=== PATIENT | female | born 1985 ===

== ENCOUNTER 2016-11-26 14:08 | Emergency (ER) | payer MEDICAID ==
[2016-11-26 14:08] VITALS: BMI 46.3
[2016-11-26 14:33] VITALS: RESP 19; TEMP 97.8
--- NOTE | 2016-11-26 14:34 | ED PDOC ---
Arrival/HPI - General Chief Complaint: ENT Problem Time Seen by Provider: 11/26/16 14:34 Historian: Patient - History of Present Illness Narrative History of Present Illness (Text): 11/26/16 14:34 This 31 yo female without a significant medical history, presents to this ED c/ o sore throat x 2 days. Patient stated it is painful to swallow. Denies fever , sob, cp, abdominal pain, rash, recent travel, or sick contact. Patient noted mild ear pain. Time/Duration: Other (2 days) Context: Home Past Medical History - Provider Review Nursing Documentation Reviewed: Yes - Past History Past History: Non-Contributing - Infectious Disease Hx of Infectious Diseases: None - Tetanus Immunization Tetanus Immunization: Unknown - Past Medical History Past Medical History: No Previous - Cardiac Hx Cardiac Disorders: No - Pulmonary Hx Respiratory Disorders: No - Neurological Hx Neurological Disorder: No - HEENT Hx HEENT Disorder: No - Renal Hx Renal Disorder: No - Endocrine/Metabolic Hx Endocrine Disorders: No - Hematological/Oncological Hx Blood Disorders: No - Integumentary Hx Dermatological Disorder: No - Musculoskeletal/Rheumatological Hx Musculoskeletal Disorders: Yes Hx Back Pain: Yes - Gastrointestinal Hx Gastrointestinal Disorders: No - Genitourinary/Gynecological Hx Genitourinary Disorders: No - Psychiatric Hx Psychophysiologic Disorder: No Hx Substance Use: No - Past Surgical History Past Surgical History: No Previous - Surgical History Hx Section: Yes (x1) Hx Tubal Ligation: Yes - Anesthesia Hx Anesthesia: Yes Hx Anesthesia Reactions: No Hx Malignant Hyperthermia: No - Suicidal Assessment Feels Threatened In Home Enviroment: No Family/Social History - Physician Review Nursing Documentation Reviewed: Yes Family/Social History: No Known Family HX Smoking Status: Never Smoked Hx Alcohol Use: No Hx Substance Use: No Hx Substance Use Treatment: No Allergies/Home Meds Allergies/Adverse Reactions: Allergies No Known Allergies Allergy (Verified 11/26/16 14:33) Review of Systems - Review of Systems Constitutional: Normal. absent: Fatigue, Weight Change, Fevers Eyes: Normal ENT: Voice Changes, Sore Throat. absent: Rhinorrhea, Epistaxis Respiratory: Normal. absent: SOB, Cough, Sputum, Wheezing Cardiovascular: Normal. absent: Chest Pain, Palpitations Gastrointestinal: Normal. absent: Abdominal Pain, Nausea, Vomiting Genitourinary Female: Normal. absent: Dysuria, Frequency, Hematuria, Vaginal Bleeding, Vaginal Discharge Musculoskeletal: Normal Skin: Normal. absent: Rash Neurological: Normal. absent: Headache, Dizziness, Focal Weakness, Gait Changes , Speech Changes, Disequilibrium, Seizure Endocrine: Normal Hemo/Lymphatic: Normal Psychiatric: Normal Physical Exam Vital Signs Temp Pulse Resp Pulse Ox 11/26/16 14:29 97.8 F 88 19 98 Temperature: Afebrile Blood Pressure: Normal Pulse: Regular Respiratory Rate: Normal Appearance: Positive for: Well-Appearing, Non-Toxic, Comfortable Pain Distress: None Mental Status: Positive for: Alert and Oriented X 3 - Systems Exam Head: Present: Atraumatic, Normocephalic Pupils: Present: PERRL Extroacular Muscles: Present: EOMI Conjunctiva: Present: Normal Mouth: Present: Moist Mucous Membranes Pharnyx: Present: ERYTHEMA, EXUDATE, TONSILS ENLARGED. No: Peritonsilar Swelling, Uvular Deviation, Muffled/Hoarse Voice, Strider, Soft Palate/Uvular Edema Nose (External): Present: Atraumatic Nose (Internal): Present: Normal Inspection Neck: Present: Normal Range of Motion Respiratory/Chest: Present: Clear to Auscultation, Good Air Exchange. No: Respiratory Distress, Accessory Muscle Use Cardiovascular: Present: Regular Rate and Rhythm, Normal S1, S2. No: Murmurs Abdomen: Present: Normal Bowel Sounds. No: Tenderness, Distention, Peritoneal Signs Back: Present: Normal Inspection Upper Extremity: Present: Normal Inspection, Normal ROM, NORMAL PULSES, Neurovascularly Intact, Capillary Refill < 2s. No: Cyanosis, Edema Lower Extremity: Present: Normal Inspection, Normal ROM, Capillary Refill < 2 s. No: Edema Neurological: Present: GCS=15, CN II-XII Intact, Speech Normal, Motor Func Grossly Intact, Normal Sensory Function, Normal Cerebellar Funct, Gait Normal, Memory Normal Skin: Present: Warm, Dry, Normal Color. No: Rashes Psychiatric: Present: Alert, Oriented x 3 Medical Decision Making ED Course and Treatment: 11/26/16 14:48 Re-evaluation. Patient feels better. Discussed results and plan with patient who expresses understanding. All questions answered and there is agreement with the plan to discharge home with instructions. Patient stable for discharge. Return if symptoms persist or worsen Re-evaluation Time: 14:48 Reassessment Condition: Re-examined, Improved Disposition/Present on Arrival - Present on Arrival Any Indicators Present on Arrival: No History of DVT/PE: No History of Uncontrolled Diabetes: No Urinary Catheter: No History of Decub. Ulcer: No History Surgical Site Infection Following: None - Disposition Have Diagnosis and Disposition been Completed?: Yes Diagnosis: Pharyngitis Disposition: HOME/ ROUTINE Disposition Time: 14:52 Patient Plan: Discharge Condition: GOOD Discharge Instructions (ExitCare): Pharyngitis (ED) Additional Instructions: Call private doctor for follow up visit in 2-3 days. Take medication as instructed. Avoid hot meals or drinks. Take medication with food. Return to emergency if symptoms worsen. Change tooth brush in 4 days Prescriptions: Amoxicillin [Amoxil 500 mg Cap] 500 mg PO TID #30 cap Prednisone [Deltasone] 60 mg PO DAILY #12 tablet Referrals: [facility] [Outside] - Follow up with primary
[2016-11-26 15:43] VITALS: BP 127/82; PULSE 78; O2SAT 100
== END 2016-11-26 15:44 | disposition home or self-care (01) ==
LOC: ED 14:08
DX: J02.9 Acute pharyngitis, unspecified (principal)

== ENCOUNTER 2017-03-11 00:47 | Emergency (ER) | payer OTHER, MEDICAID ==
[2017-03-11 00:57] VITALS: BMI 45.3
[2017-03-11 01:01] VITALS: TEMP 97.7; O2SAT 100
--- NOTE | 2017-03-11 01:47 | ED PDOC ---
Arrival/HPI <CHASITY DESAI - Last Filed: 03/11/17 02:00> <Diomedes Schumacher DO - Last Filed: 03/11/17 06:22> - General Chief Complaint: Abnormal Skin Integrity Time Seen by Provider: 03/11/17 01:18 - History of Present Illness Narrative History of Present Illness (Text): 03/11/17 01:42 Mrs. England is a 31 year old female who presents to emergency department complaining of an abscess under her right armpit. Patient states the abscess has been present for the past few days. She states the abscess is painful to the touch. She denies any history of redness or drainage associated with the abscess. She denies fever, chills, nausea, vomiting, diarrhea.She has no prior history of abscess. (CHASITY DESAI) Past Medical History - Provider Review Nursing Documentation Reviewed: Yes - Past History Past History: Non-Contributing - Infectious Disease Hx of Infectious Diseases: None - Tetanus Immunization Tetanus Immunization: Unknown - Past Medical History Past Medical History: No Previous - Cardiac Hx Cardiac Disorders: No - Pulmonary Hx Respiratory Disorders: No - Neurological Hx Neurological Disorder: No - HEENT Hx HEENT Disorder: No - Renal Hx Renal Disorder: No - Endocrine/Metabolic Hx Endocrine Disorders: No - Hematological/Oncological Hx Blood Disorders: No - Integumentary Hx Dermatological Disorder: No - Musculoskeletal/Rheumatological Hx Musculoskeletal Disorders: Yes Hx Back Pain: Yes - Gastrointestinal Hx Gastrointestinal Disorders: No - Genitourinary/Gynecological Hx Genitourinary Disorders: No - Psychiatric Hx Psychophysiologic Disorder: No Hx Substance Use: No - Past Surgical History Past Surgical History: No Previous - Surgical History Hx Section: Yes (x1) Hx Tubal Ligation: Yes - Anesthesia Hx Anesthesia: Yes Hx Anesthesia Reactions: No Hx Malignant Hyperthermia: No - Suicidal Assessment Feels Threatened In Home Enviroment: No <CHASITY DESAI - Last Filed: 03/11/17 02:00> Family/Social History - Physician Review Nursing Documentation Reviewed: Yes Family/Social History: No Known Family HX Smoking Status: Never Smoked Hx Alcohol Use: No Hx Substance Use: No Hx Substance Use Treatment: No <CHASITY DESAI - Last Filed: 03/11/17 02:00> Allergies/Home Meds <CHASITY DESAI - Last Filed: 03/11/17 02:00> <Diomedes Schumacher DO - Last Filed: 03/11/17 06:22> Allergies/Adverse Reactions: Allergies No Known Allergies Allergy (Verified 03/11/17 00:57) Review of Systems - Review of Systems Constitutional: absent: Fatigue, Weight Change, Fevers, Night Sweats Respiratory: absent: SOB, Cough, Sputum Cardiovascular: absent: Chest Pain, Palpitations, Edema Gastrointestinal: absent: Abdominal Pain, Stool Changes, Diarrhea, Appetite Changes Musculoskeletal: absent: Arthralgias, Joint Swelling, Myalgias Skin: Abscess (right armpit). absent: Rash, Pruritis Neurological: absent: Headache, Focal Weakness Endocrine: absent: Diaphoresis, Polyuria, Polydipsia Psychiatric: absent: Anxiety, Depression <CHASITY DESAI - Last Filed: 03/11/17 02:00> Physical Exam Vital Signs Reviewed: Yes Temperature: Afebrile Blood Pressure: Normal Pulse: Regular Respiratory Rate: Normal Appearance: Positive for: Well-Appearing Pain Distress: Mild Mental Status: Positive for: Alert and Oriented X 3 - Systems Exam Head: Present: Atraumatic, Normocephalic Pupils: Present: PERRL Extroacular Muscles: Present: EOMI Mouth: Present: Moist Mucous Membranes Neck: Present: Normal Range of Motion. No: JVD Respiratory/Chest: Present: Clear to Auscultation, Good Air Exchange. No: Respiratory Distress, Accessory Muscle Use Cardiovascular: Present: Regular Rate and Rhythm, Normal S1, S2 Abdomen: Present: Normal Bowel Sounds. No: Tenderness, Distention Upper Extremity: Present: NORMAL PULSES Lower Extremity: Present: Normal Inspection. No: Edema Neurological: Present: GCS=15, CN II-XII Intact, Speech Normal Skin: Present: Abscess (Right axilla 1cm x 2cm) Psychiatric: Present: Alert, Oriented x 3, Normal Insight <CHASITY DESAI - Last Filed: 03/11/17 02:00> Medical Decision Making Reassessment Condition: Improved <CHASITY DESAI - Last Filed: 03/11/17 02:00> <Diomedes Schumacher DO - Last Filed: 03/11/17 06:22> ED Course and Treatment: 03/11/17 01:50 Impression: Mrs. England is a 31 year old female with chief complaint of an abscess located at the right axilla. Differential Diagnosis included but are not limited to: - Abscess Plan: - Incision and Drainage of abscess - Meds: Keflex - Follow up with PCP for removal of packing - Reassess and disposition Progress Notes: Performed by the emergency provider Indication: Abscess Location: Right axilla Preparation: The area was prepped and draped in the usual sterile fashion and was cleansed with alcohol wipes. Local infiltration of Lidocaine 1% with Epi was used for anesthesia. Procedure: The most fluctuant portion of the abscess was incised with a #11 scalpel. ~ Approximately 1 mL of puss and serosangunous fluid was obtained. The abscess was packed. A dressing was applied. Post-Procedure: On exam the abscess is notably less fluctuant. The patient tolerated the procedure well, and there were no complications. Cultured: NO 03/11/17 01:58 (CHASITY DESAI) Patient Seen With Resident: In agreement with resident note which contains more details about the patient. Patient was seen and evaluated with resident. Came up with plan and treatment together. A 31 year old female with an abscess under right armpit. Additional HPI as noted by resident. On physical exam, patient has a 1 cm x 2 cm right axilla abscess. Will do incision and drainage of abscess and give patient Keflex. (Diomedes Schumacher DO) - Medication Orders Current Medication Orders: Discontinued Medications Cephalexin Monohydrate (Keflex) 500 mg PO STAT STA PRN Reason: Protocol Stop: 03/11/17 01:58 Last Admin: 03/11/17 02:00 Dose: 500 mg - PA / USER EXPERIENCE LEAD / Resident Statement REYES has reviewed & agrees with the documentation as recorded. REYES has examined the patient and agrees with the treatment plan. <CHASITY DESAI - Last Filed: 03/11/17 02:00> - Scribe Statement The provider has reviewed the documentation as recorded by the Scribe <Diomedes Schumacher DO - Last Filed: 03/11/17 06:22> - Scribe Statement Ivan Cali Provider Scribe Attestation: All medical record entries made by the Scribe were at my direction and personally dictated by me. I have reviewed the chart and agree that the record accurately reflects my personal performance of the history, physical exam, medical decision making, and the department course for this patient. I have also personally directed, reviewed, and agree with the discharge instructions and disposition. (Diomedes Schumacher DO) Disposition/Present on Arrival - Present on Arrival Any Indicators Present on Arrival: No History of DVT/PE: No History of Uncontrolled Diabetes: No Urinary Catheter: No History of Decub. Ulcer: No History Surgical Site Infection Following: None - Disposition Have Diagnosis and Disposition been Completed?: Yes Disposition Time: 01:50 <CHASITY DESAI - Last Filed: 03/11/17 02:00> <Diomedes Schumacher DO - Last Filed: 03/11/17 06:22> - Disposition Diagnosis: Abscess Disposition: HOME/ ROUTINE Condition: GOOD Discharge Instructions (ExitCare): Abscess (ED) Additional Instructions: Thank you for letting us take care of you today. Your provider was Dr. Schumacher. You were treated for abscess. The emergency medical care you received today was directed at your acute symptoms. If you were prescribed any medication, please fill it and take as directed. It may take several days for your symptoms to resolve. Return to the Emergency Department if your symptoms worsen, do not improve, or if you have any other problems. Please contact your doctor or call one of the physicians/clinics you have been referred to that are listed on the Patient Visit Information form that is included in your discharge packet. Bring any paperwork you were given at discharge with you along with any medications you are taking to your follow up visit. Our treatment cannot replace ongoing medical care by a primary care provider (PCP) outside of the emergency department. Thank you for allowing the [facility] team to be part of your care today. Apply dry heat to the area as much as possible to promote drainage. Follow up with your doctor in 2 days for packing removal and re-evaluation. Prescriptions: Cephalexin [Keflex] 500 mg PO BID #10 capsule Referrals: Chris Aaron MD [Primary Care Provider] - Follow up with primary
[2017-03-11 02:08] VITALS: BP 116/81; PULSE 80; RESP 17
== END 2017-03-11 02:07 | disposition home or self-care (01) ==
LOC: ED 00:47
DX: L02.411 Cutaneous abscess of right axilla (principal)

== ENCOUNTER 2017-11-26 22:02 | Emergency (ER) | payer OTHER, MEDICAID ==
[2017-11-26 22:02] VITALS: BMI 45.3
--- NOTE | 2017-11-26 22:05 | ED PDOC ---
Arrival/HPI - General Historian: Patient <Rajeev Vázquez - Last Filed: 11/27/17 01:27> <Paul Beavers - Last Filed: 11/27/17 01:32> - General Time Seen by Provider: 11/26/17 22:04 - History of Present Illness Narrative History of Present Illness (Text): 11/26/17 22:04 32 y/o female, no significant pmh, nkda, bilateral tubal ligation, c/o rt. ankle pain s/p inversion injury this afternoon. Aching pain, aggravated by walking, no numbness or tingling, no calf pain, no foot pain, no rash, no numbness or tingling, no other medical or psychological complaints. (Rajeev Vázquez) Past Medical History - Provider Review Nursing Documentation Reviewed: Yes - Past History Past History: Non-Contributing - Infectious Disease Hx of Infectious Diseases: None - Tetanus Immunization Tetanus Immunization: Unknown - Past Medical History Past Medical History: No Previous - Cardiac Hx Cardiac Disorders: No - Pulmonary Hx Respiratory Disorders: No - Neurological Hx Neurological Disorder: No - HEENT Hx HEENT Disorder: No - Renal Hx Renal Disorder: No - Endocrine/Metabolic Hx Endocrine Disorders: No - Hematological/Oncological Hx Blood Disorders: No - Integumentary Hx Dermatological Disorder: No - Musculoskeletal/Rheumatological Hx Musculoskeletal Disorders: Yes Hx Back Pain: Yes - Gastrointestinal Hx Gastrointestinal Disorders: No - Genitourinary/Gynecological Hx Genitourinary Disorders: No - Psychiatric Hx Psychophysiologic Disorder: No Hx Substance Use: No - Past Surgical History Past Surgical History: No Previous - Surgical History Hx Section: Yes (x1) Hx Tubal Ligation: Yes - Anesthesia Hx Anesthesia: Yes Hx Anesthesia Reactions: No Hx Malignant Hyperthermia: No - Suicidal Assessment Feels Threatened In Home Enviroment: No <Rajeev Vázquez - Last Filed: 11/27/17 01:27> Family/Social History - Physician Review Nursing Documentation Reviewed: Yes Family/Social History: Unknown Family HX Smoking Status: Never Smoked Hx Alcohol Use: No Hx Substance Use: No Hx Substance Use Treatment: No <Rajeev Vázquez - Last Filed: 11/27/17 01:27> Allergies/Home Meds <Rajeev Vázquez - Last Filed: 11/27/17 01:27> <Paul Beavers - Last Filed: 11/27/17 01:32> Allergies/Adverse Reactions: Allergies No Known Allergies Allergy (Verified 11/26/17 22:49) Review of Systems - Review of Systems Constitutional: absent: Fatigue, Fevers Eyes: absent: Vision Changes ENT: absent: Hearing Changes Respiratory: absent: SOB, Cough Cardiovascular: absent: Chest Pain Gastrointestinal: absent: Abdominal Pain, Diarrhea, Nausea, Vomiting Musculoskeletal: Arthralgias, Joint Swelling. absent: Back Pain, Neck Pain, Myalgias Skin: absent: Rash, Pruritis Neurological: absent: Headache, Dizziness Psychiatric: absent: Anxiety, Depression, Suicidal Ideation <Rajeev Vázquez - Last Filed: 11/27/17 01:27> Physical Exam Temperature: Afebrile Blood Pressure: Normal Pulse: Regular Respiratory Rate: Normal Appearance: Positive for: Well-Appearing, Non-Toxic, Comfortable Pain Distress: None Mental Status: Positive for: Alert and Oriented X 3 - Systems Exam Head: Present: Atraumatic, Normocephalic Pupils: Present: PERRL Extroacular Muscles: Present: EOMI Conjunctiva: Present: Normal Mouth: Present: Moist Mucous Membranes Neck: Present: Normal Range of Motion Respiratory/Chest: Present: Clear to Auscultation, Good Air Exchange. No: Respiratory Distress, Accessory Muscle Use Cardiovascular: Present: Regular Rate and Rhythm, Normal S1, S2. No: Murmurs Abdomen: Present: Normal Bowel Sounds. No: Tenderness, Distention, Peritoneal Signs Back: Present: Normal Inspection Upper Extremity: Present: Normal Inspection. No: Cyanosis, Edema Lower Extremity: Present: Normal Inspection, Other (Rt. ankle/foot: +ttp and mild swelling to the lateral malleolus, negative elie and feldman signs, FROM without limitation, sensation intact, motor 5/5, +DPPT pulses, capillary refill < 2 seconds, no foot tenderness. ). No: Edema Neurological: Present: GCS=15, CN II-XII Intact, Speech Normal Skin: Present: Warm, Dry, Normal Color. No: Rashes Psychiatric: Present: Alert, Oriented x 3, Normal Insight, Normal Concentration <Rajeev Vázquez - Last Filed: 11/27/17 01:27> <Paul Beavers - Last Filed: 11/27/17 01:32> Vital Signs Temp Pulse Resp BP Pulse Ox 11/27/17 00:14 99.0 F 81 18 113/67 98 Medical Decision Making <Rajeev Vázquez - Last Filed: 11/27/17 01:27> <Paul Beavers - Last Filed: 11/27/17 01:32> ED Course and Treatment: 11/26/17 22:35 -Rt. ankle xray with abdomen/pelvic shielded as per protocol before urine hcg. -tylenol -observe and reassess 11/26/17 23:58 -Rt. ankle xray reviewed with the patient with questionable cortical abnormality on the lateral view -Posterior splint applied with neurovascular intact by me, crutches given. -Discharge home with posterior splint, crutches, take tylenol at home for pain as needed, ice compression, follow up with your own pmd and orthopedic within 2 days, return to the ER for any new or worsening signs or symptoms. (Rajeev Vázquez) - RAD Interpretation Radiology Orders: 11/26/17 22:32 ANKLE RIGHT 3 VIEWS ROUTINE [RAD] Stat - Medication Orders Current Medication Orders: Discontinued Medications Acetaminophen (Tylenol 325mg Tab) 650 mg PO STAT STA Stop: 11/26/17 22:33 Last Admin: 11/26/17 23:15 Dose: 650 mg MAR Pain/Vitals Document 11/26/17 23:15 JOL (Rec: 11/26/17 23:26 JOL [id number]) Pain Reassessment Is This A Pain ReAssessment? No Sleep Is patient sleeping during reassessment? No Presence of Pain Presence of Pain Yes Pain Scale Used Pain Scale Used Numeric Location Left, Right or Bilateral Right Pain Location Body Site Foot Intensity 6 - PA / BARREL MAKER / Resident Statement REYES has reviewed & agrees with the documentation as recorded. <Rajeev Vázquez - Last Filed: 11/27/17 01:27> - PA / BARREL MAKER / Resident Statement REYES has reviewed & agrees with the documentation as recorded. <Paul Beavers - Last Filed: 11/27/17 01:32> Disposition/Present on Arrival - Present on Arrival Any Indicators Present on Arrival: No History of DVT/PE: No History of Uncontrolled Diabetes: No Urinary Catheter: No History of Decub. Ulcer: No History Surgical Site Infection Following: None - Disposition Have Diagnosis and Disposition been Completed?: Yes Disposition Time: 22:35 Patient Plan: Discharge <Rajeev Vázquez - Last Filed: 11/27/17 01:27> <Paul Beavers - Last Filed: 11/27/17 01:32> - Disposition Diagnosis: Ankle injury, Ankle pain Disposition: HOME/ ROUTINE Patient Problems: Current Active Problems Problem Status Onset Ankle injury Acute Ankle pain Acute Condition: GOOD Additional Instructions: -Discharge home with posterior splint, crutches, take tylenol at home for pain as needed, ice compression, follow up with your own pmd and orthopedic within 2 days, return to the ER for any new or worsening signs or symptoms. Referrals: Chris Aaron MD [Primary Care Provider] - Follow up with primary Jennifer Mishra MD [Staff Provider] - Follow up with primary Forms: WORK NOTE
[2017-11-27 00:15] VITALS: RESP 18; TEMP 99
[2017-11-27 05:45] VITALS: BP 118/70; PULSE 77; O2SAT 99
--- NOTE | 2017-11-27 08:28 | RAD ---
PROCEDURE: Right Ankle Radiographs. HISTORY: rt. ankle inversion injury and pain COMPARISON: None FINDINGS: BONES: Normal. No fracture. JOINTS: Normal. No osteoarthritis. Ankle mortise maintained. Talar dome intact SOFT TISSUES: Normal. OTHER FINDINGS: None. IMPRESSION: Normal right ankle radiographs.
== END 2017-11-27 01:45 | disposition home or self-care (01) ==
LOC: ED 22:02
DX: S99.911A Unspecified injury of right ankle, initial encounter (principal); X50.0XXA Overexertion from strenuous movement or load, initial encounter; Y92.89 Other specified places as the place of occurrence of the external cause

== ENCOUNTER 2018-01-22 07:46 | Emergency (ER) | payer OTHER, MEDICAID ==
[2018-01-22 07:48] VITALS: BMI 47.4
[2018-01-22 07:57] VITALS: RESP 18
[2018-01-22] MEDS ORDERED: Famotidine 20mg/50ml 20 MG in Premixed IV 50 EA IVPB STA (08:09)
[2018-01-22] MEDS ORDERED: Sodium Chloride 0.9% 1,000 ML IV STA (08:10)
--- NOTE | 2018-01-22 08:11 | ED PDOC ---
Arrival/HPI - General Time Seen by Provider: 01/22/18 08:07 Historian: Patient - History of Present Illness Narrative History of Present Illness (Text): 01/22/18 08:00 32 year old female, who presents to the emergency department complaining of intermittent epigastric pain since a couple of days that became worse last night. Patient reports also having nausea, diarrhea, and frequency. Patient denies chest pain, shortness of breath headache, vomiting, dysuria, hematuria, fever, or other complaints. Time/Duration: < week Symptom Onset: Gradual Symptom Course: Intermittent, Worsening Context: Home Past Medical History - Provider Review Nursing Documentation Reviewed: Yes - Past History Past History: Non-Contributing - Infectious Disease Hx of Infectious Diseases: None - Tetanus Immunization Tetanus Immunization: Unknown - Past Medical History Past Medical History: No Previous - Cardiac Hx Cardiac Disorders: No - Pulmonary Hx Respiratory Disorders: No - Neurological Hx Neurological Disorder: No - HEENT Hx HEENT Disorder: No - Renal Hx Renal Disorder: No - Endocrine/Metabolic Hx Endocrine Disorders: No - Hematological/Oncological Hx Blood Disorders: No - Integumentary Hx Dermatological Disorder: No - Musculoskeletal/Rheumatological Hx Musculoskeletal Disorders: Yes Hx Back Pain: Yes - Gastrointestinal Hx Gastrointestinal Disorders: No - Genitourinary/Gynecological Hx Genitourinary Disorders: No - Psychiatric Hx Psychophysiologic Disorder: No Hx Substance Use: No - Past Surgical History Past Surgical History: No Previous - Surgical History Hx Section: Yes (x1) Hx Tubal Ligation: Yes - Anesthesia Hx Anesthesia: Yes Hx Anesthesia Reactions: No Hx Malignant Hyperthermia: No - Suicidal Assessment Feels Threatened In Home Enviroment: No Family/Social History - Physician Review Nursing Documentation Reviewed: Yes Family/Social History: Unknown Family HX Smoking Status: Never Smoked Hx Alcohol Use: No Hx Substance Use: No Hx Substance Use Treatment: No Allergies/Home Meds Allergies/Adverse Reactions: Allergies No Known Allergies Allergy (Verified 01/22/18 08:08) Review of Systems - Review of Systems Constitutional: absent: Fevers Eyes: absent: Vision Changes Respiratory: absent: SOB Cardiovascular: absent: Chest Pain Gastrointestinal: Abdominal Pain (epigastric pain ), Diarrhea, Nausea. absent: Vomiting Genitourinary Female: Frequency. absent: Dysuria, Hematuria Musculoskeletal: absent: Back Pain Skin: absent: Rash Neurological: absent: Headache Endocrine: absent: Diaphoresis Physical Exam Vital Signs Reviewed: Yes Vital Signs Temp Pulse Resp BP Pulse Ox 01/22/18 10:33 97.9 F 89 18 128/79 98 01/22/18 08:31 98 F 88 18 127/88 98 01/22/18 07:56 97.9 F 79 18 135/77 100 Temperature: Afebrile Blood Pressure: Normal Pulse: Regular Respiratory Rate: Normal Appearance: Positive for: Well-Appearing, Non-Toxic, Comfortable Pain Distress: None Mental Status: Positive for: Alert and Oriented X 3 - Systems Exam Head: Present: Atraumatic, Normocephalic Pupils: Present: PERRL Extroacular Muscles: Present: EOMI Conjunctiva: Present: Normal Respiratory/Chest: Present: Clear to Auscultation, Good Air Exchange. No: Respiratory Distress, Accessory Muscle Use, Wheezes, Rales, Rhonchi Cardiovascular: Present: Regular Rate and Rhythm, Normal S1, S2. No: Murmurs Abdomen: Present: Tenderness (epigastric tenderness), Normal Bowel Sounds. No: Distention, Peritoneal Signs, Rebound, Guarding Neurological: Present: GCS=15, CN II-XII Intact, Speech Normal Skin: Present: Warm, Dry, Normal Color. No: Rashes Psychiatric: Present: Alert, Oriented x 3, Normal Insight, Normal Concentration Medical Decision Making ED Course and Treatment: 01/22/18 Impression: 32 year old female with epigastric tenderness complaining of epigastric pain associated with nausea, diarrhea, and frequency. Plan: -- Labs -- Reassess and disposition Progress Notes: 01/22/18 09:30 Chest X-ray: Creator : Michael Garrett MD FINDINGS: LUNGS: No active pulmonary disease. PLEURA: No significant pleural effusion identified, no pneumothorax apparent. CARDIOVASCULAR: Normal. OSSEOUS STRUCTURES: No significant abnormalities. VISUALIZED UPPER ABDOMEN: Normal. OTHER FINDINGS: None. IMPRESSION: No active disease. 01/22/18 10:00 On re-evaluation, patient is still in pain. I will order Morphine and abdominal ultrasound. - Lab Interpretations Lab Results: 01/22/18 08:32 01/22/18 08:32 Lab Results 01/22/18 08:32: Urine HCG, Qual Negative 01/22/18 08:32: Urine Color Yellow, Urine Appearance Clear, Urine pH 6.0, Ur Specific [place] 1.025, Urine Protein Trace H, Urine Glucose (UA) Negative, Urine Ketones Negative, Urine Blood Moderate H, Urine Nitrate Negative, Urine Bilirubin Negative, Urine Urobilinogen 0.2, Ur Leukocyte Esterase Negative, Urine RBC 20 - 25, Urine WBC 1 - 3, Ur Epithelial Cells 6 - 8, Amorphous Sediment Few, Urine Bacteria Many, Hyaline Casts 0 - 2, Fine Granular Casts 0 - 2, Coarse Granular Casts Trace H, Urine Other Fiber 01/22/18 08:32: Sodium 144, Potassium 3.8, Chloride 107, Carbon Dioxide 23, Anion Gap 17, BUN 12, Creatinine 0.7, Est GFR ( Amer) > 60, Est GFR (Non- Af Amer) > 60, Random Glucose 96, Calcium 9.2, Total Bilirubin 0.3, AST 26, ALT 25, Alkaline Phosphatase 90, Total Protein 7.6, Albumin 4.2, Globulin 3.4, Albumin/Globulin Ratio 1.2, Lipase 25 01/22/18 08:32: WBC 13.7 H D, RBC 4.32, Hgb 11.7 L, Hct 35.7 L, MCV 82.6, MCH 27.1, MCHC 32.8, RDW 13.8, Plt Count 386, MPV 10.0, Gran % 75.5 H, Lymph % (Auto ) 16.3 L, [place] % (Auto) 5.7, Eos % (Auto) 2.4, Baso % (Auto) 0.1, Gran # 10.36 H , Lymph # (Auto) 2.2, [place] # (Auto) 0.8 H, Eos # (Auto) 0.3, Baso # (Auto) 0.02 I have reviewed the lab results: Yes - RAD Interpretation Radiology Orders: 01/22/18 08:26 CXR [CHEST PORTABLE] [RAD] Stat 01/22/18 10:03 ABDOMEN COMPLETE [US] Urgent - Medication Orders Current Medication Orders: Discontinued Medications Famotidine 20 mg/ (Miscellaneous) 50 mls @ 100 mls/hr IVPB STAT STA Stop: 01/22/18 08:38 Last Admin: 01/22/18 08:25 Dose: 100 mls/hr eMAR Start Stop Document 01/22/18 08:25 EAR (Rec: 01/22/18 10:25 EAR [id number]) Intravenous Solution Start Date 01/22/18 Start Time 08:30 End Date 01/22/18 End time 09:20 Total Infusion Time 50 Sodium Chloride (Sodium Chloride 0.9%) 1,000 mls @ 999 mls/hr IV .Q1H1M STA Stop: 01/22/18 09:10 Last Admin: 01/22/18 08:34 Dose: 999 mls/hr eMAR Start Stop Document 01/22/18 08:34 EAR (Rec: 01/22/18 08:35 EAR [id number]) Intravenous Solution Start Date 01/22/18 Start Time 08:34 End Date 01/22/18 End time 09:35 Total Infusion Time 61 Morphine Sulfate (Morphine) 4 mg IVP STAT STA Stop: 01/22/18 10:04 Last Admin: 01/22/18 10:29 Dose: 4 mg MAR Pain Assessment Document 01/22/18 10:29 EAR (Rec: 01/22/18 10:30 EAR [id number]) Pain Reassessment Is this a pain reassessment? Yes Sleep Is patient sleeping during reassessment? Yes Pain Scale Used Pain Scale Used Numeric Description Description Constant IVP Administration Document 01/22/18 10:29 EAR (Rec: 01/22/18 10:30 EAR [id number]) Charges for Administration # of IVP Administrations 1 Ondansetron HCl (Zofran Inj) 4 mg IVP STAT STA Stop: 01/22/18 08:11 Last Admin: 01/22/18 08:34 Dose: 4 mg IVP Administration Document 01/22/18 08:34 EAR (Rec: 01/22/18 08:34 EAR [id number]) Charges for Administration # of IVP Administrations 1 - Scribe Statement The provider has reviewed the documentation as recorded by the Scribe America Moore Provider Scribe Attestation: All medical record entries made by the Scribe were at my direction and personally dictated by me. I have reviewed the chart and agree that the record accurately reflects my personal performance of the history, physical exam, medical decision making, and the department course for this patient. I have also personally directed, reviewed, and agree with the discharge instructions and disposition. Disposition/Present on Arrival - Present on Arrival Any Indicators Present on Arrival: Yes History of DVT/PE: No History of Uncontrolled Diabetes: No Urinary Catheter: No History Surgical Site Infection Following: None - Disposition Have Diagnosis and Disposition been Completed?: Yes Diagnosis: Enteritis, Cholelithiasis, Epigastric pain Disposition: HOME/ ROUTINE Disposition Time: 12:46 Patient Plan: Discharge Condition: GOOD Discharge Instructions (ExitCare): Gallstones, Viral Gastroenteritis, Adult (DC ) Prescriptions: Famotidine [Pepcid] 40 mg PO DAILY #30 tablet Forms: WORK NOTE
[2018-01-22] MEDS ORDERED: Famotidine 20mg/50ml 20 MG/50 ML BAG IVPB ONE (08:33)
[2018-01-22 08:38] LABS: BASO # 0.02 K/mm3 (0.0-2.0); BASO % 0.1 % (0.0-3.0); EOS # 0.3 (0.0-0.7); EOS % 2.4 % (1.5-5.0); GRAN # 10.36 (1.4-6.5); GRAN % 75.5 % (50.0-68.0); HEMOGLOBIN 11.7 g/dL (12.0-16.0); LYMPH # 2.2 (1.2-3.4); LYMPH % 16.3 % (22.0-35.0); MEAN CELL VOLUME 82.6 fl (80.0-105.0); MEAN CORPUSCULAR HEMOGLOBIN 27.1 pg (25.0-35.0); MEAN CORPUSCULAR HGB CONC 32.8 g/dl (31.0-37.0); MONO # 0.8 (0.1-0.6); MONO % 5.7 % (1.0-6.0); RBC 4.32 10^6/uL (3.5-6.1); RED CELL DISTRIBUTION WIDTH 13.8 % (11.5-14.5); WHITE BLOOD COUNT 13.7 10^3/ul (4.5-11.0)
[2018-01-22 08:55] LABS: ALB/GLOB RATIO 1.2 (1.1-1.8); ALBUMIN 4.2 g/dL (3.0-4.8); CALCIUM 9.2 mg/dL (8.4-10.5); GFR AFRICAN-AMERICAN > 60; GFR NON-AFRICAN AMERICAN > 60; LIPASE 25 U/L (23-300)
[2018-01-22 08:56] LABS: URINE BILIRUBIN NEGATIVE (NEGATIVE); URINE BLOOD MODERATE (NEGATIVE); URINE GLUCOSE (UA) NEGATIVE (NEGATIVE); URINE LEUKOCYTE ESTERASE NEGATIVE Leu/uL (NEGATIVE); URINE PROTEIN TRACE mg/dL (<30 mg/dL); URINE UROBILINOGEN 0.2 E.U./dL (<1 E.U./dL)
[2018-01-22 08:57] LABS: URINE APPEARANCE CLEAR (CLEAR); URINE COLOR YELLOW (YELLOW)
[2018-01-22 08:59] LABS: ALT/SGPT 25 U/L (7-56); AST/SGOT 26 U/L (14-36); BLOOD UREA NITROGEN 12 mg/dL (7-21)
[2018-01-22 09:05] LABS: URINE BACTERIA MANY (NEG); URINE HYALINE CAST 0 - 2 /hpf; URINE RBC 20 - 25 /hpf (0-2)
[2018-01-22 09:06] LABS: URINE FINE GRANULAR CAST 0 - 2 /hpf (0-2)
[2018-01-22 09:07] LABS: URINE AMORPHOUS SEDIMENT FEW; URINE COARSE GRANULAR CAST TRACE /hpf (0-2)
--- NOTE | 2018-01-22 09:22 | RAD ---
HISTORY: epigastric pain COMPARISON: No prior. FINDINGS: LUNGS: No active pulmonary disease. PLEURA: No significant pleural effusion identified, no pneumothorax apparent. CARDIOVASCULAR: Normal. OSSEOUS STRUCTURES: No significant abnormalities. VISUALIZED UPPER ABDOMEN: Normal. OTHER FINDINGS: None. IMPRESSION: No active disease.
[2018-01-22] MEDS ORDERED: Morphine 4 mg/ml ISec IVP STA (10:03)
--- NOTE | 2018-01-22 12:05 | US ---
HISTORY: RUQ pain COMPARISON: None. TECHNIQUE: Sonographic evaluation of the abdomen. FINDINGS: LIVER: Measures 20 cm. Normal echogenicity of the liver parenchyma. No mass. No intrahepatic bile duct dilatation. GALLBLADDER: Cholelithiasis. COMMON BILE DUCT: Measures mm. No stones. No dilatation. PANCREAS: Unremarkable as visualized. No mass. No ductal dilatation. RIGHT KIDNEY: Measures cm. Normal echogenicity. No calculus, mass, or hydronephrosis. LEFT KIDNEY: Measures cm. Normal echogenicity. No calculus, mass, or hydronephrosis. SPLEEN: Normal in size and contour. No mass. AORTA: No aneurysmal dilatation. IVC: Unremarkable. OTHER FINDINGS: None. IMPRESSION: Cholelithiasis. Hepatomegaly.
[2018-01-22 13:15] VITALS: TEMP 98; O2SAT 99
[2018-01-22 13:17] VITALS: BP 127/69; PULSE 88
== END 2018-01-22 13:16 | disposition home or self-care (01) ==
LOC: ED 07:46
DX: K52.9 Noninfective gastroenteritis and colitis, unspecified (principal); K80.20 Calculus of gallbladder without cholecystitis without obstruction; R10.13 Epigastric pain
CPT/HCPCS: 71045; 76700; 80053; 81001; 83690; 84703; 85025; 87086; 96365; 96375; 99284; J2270; J2405; J7040